=== PATIENT | female | born 1975 | race Caucasian/White ===

== ENCOUNTER → 2020-08-12 | Outpatient (CLI) | payer BC ==
[~2020-08-12] MED LIST: ESCITALOPRAM OX10 MG PO; HYDROCHLOROTHIA25 MG PO; LEVOCETIRIZINE D5 MG PO; LISINOPRIL20 MG PO; NORCO 7.5-3251 EACH PO; ORACEA40 MG PO; OSENI 25-15 MG1 EACH PO; OSENI PO; PRAVASTATIN SOD40 MG PO; SAXENDA SQ; VICTOZA 1818 MG/3 ML SC; VITAMIN D5000 UNIT PO; [UNRECOGNIZED DRUG - OTHER] PO
[2020-08-12 09:13] LABS: HEMOGLOBIN 14.5 gm/dl (12.3-15.3); RED BLOOD COUNT 4.84 M/UL (4.00-5.10); WHITE BLOOD COUNT 7.1 K/UL (4.5-11.0)
[2020-08-12 09:32] LABS: BUN/CREATININE RATIO 18 (0-10)
== END ==
LOC: LAB 08:33
PROVIDERS: Nurse Practitioner Family
DX: Z00.00 Encounter for general adult medical examination without abnormal findings (principal); F90.2 Attention-deficit hyperactivity disorder, combined type; M25.50 Pain in unspecified joint; J30.9 Allergic rhinitis, unspecified; K59.09 Other constipation; E78.5 Hyperlipidemia, unspecified; R53.83 Other fatigue; E53.8 Deficiency of other specified B group vitamins; E55.9 Vitamin D deficiency, unspecified; Z86.79 Personal history of other diseases of the circulatory system
CPT/HCPCS: 36415; 80053; 80061; 82607; 84439; 84443; 85025

== ENCOUNTER → 2020-11-11 | Outpatient (CLI) | payer BC ==
[2020-11-11 10:28] LABS: HEMOGLOBIN 12.6 gm/dl (12.3-15.3); RED BLOOD COUNT 4.48 M/UL (4.00-5.10); WHITE BLOOD COUNT 6.3 K/UL (4.5-11.0)
[2020-11-11 22:39] LABS: BUN/CREATININE RATIO 18 (0-10)
[2020-11-12 04:08] LABS: CREATININE, URINE 84.8 mg/dL (Not Estab.)
[2020-11-12 07:08] LABS: FSH, SERUM 7.6 mIU/mL (.); PROLACTIN 7.1 ng/mL (4.8-23.3)
[2020-11-12 08:10] LABS: VITAMIN D, 25-HYDROXY 19.4 ng/mL (30.0-100.0)
[2020-11-17 10:14] LABS: TESTOSTERONE, SERUM 29 ng/dL (4-50)
== END ==
LOC: LAB 09:50
PROVIDERS: Nurse Practitioner Family
DX: Z00.00 Encounter for general adult medical examination without abnormal findings (principal); R23.2 Flushing; M25.50 Pain in unspecified joint; R73.9 Hyperglycemia, unspecified; R51.9 Headache, unspecified; E78.5 Hyperlipidemia, unspecified; E53.8 Deficiency of other specified B group vitamins; E55.9 Vitamin D deficiency, unspecified; R53.83 Other fatigue
CPT/HCPCS: 36415; 80053; 80061; 82043; 82570; 82607; 82670; 83001; 83002; 83036; 84146; 84402; 84403; 84436; 84439; 84443; 85025; 85652

== ENCOUNTER → 2021-03-12 | Outpatient (CLI) | payer BC | LOC: US 13:30 | DX: R13.10 Dysphagia, unspecified (principal); E04.2 Nontoxic multinodular goiter; R22.1 Localized swelling, mass and lump, neck | CPT/HCPCS: 76536 ==

== ENCOUNTER → 2021-04-12 | Outpatient (CLI) | payer BC | LOC: CT 09:00 | DX: R13.10 Dysphagia, unspecified (principal); R59.0 Localized enlarged lymph nodes | CPT/HCPCS: 70492; Q9967 ==

== ENCOUNTER → 2021-07-07 | Outpatient (CLI) | payer BC ==
[2021-07-07 09:52] LABS: HEMOGLOBIN 12.4 gm/dl (12.3-15.3); RED BLOOD COUNT 4.76 M/UL (4.00-5.10); WHITE BLOOD COUNT 5.8 K/UL (4.5-11.0)
[2021-07-07 10:25] LABS: BUN/CREATININE RATIO 12 (0-10)
[2021-07-08 08:10] LABS: ANTISTREPTOLYSIN O AB 91.9 IU/mL (0.0-200.0); RHEUMATOID ARTHRITIS FACTOR <10.0 IU/mL (<14.0)
[2021-07-09 08:10] LABS: VITAMIN D, 25-HYDROXY 25.2 ng/mL (30.0-100.0)
== END ==
LOC: LAB 09:23
PROVIDERS: Nurse Practitioner Family
DX: Z00.00 Encounter for general adult medical examination without abnormal findings (principal); M25.50 Pain in unspecified joint; J30.9 Allergic rhinitis, unspecified; K59.09 Other constipation; E78.5 Hyperlipidemia, unspecified; R53.83 Other fatigue; E53.8 Deficiency of other specified B group vitamins; E55.9 Vitamin D deficiency, unspecified; R73.9 Hyperglycemia, unspecified; N92.0 Excessive and frequent menstruation with regular cycle
CPT/HCPCS: 36415; 80053; 80061; 82607; 83036; 84439; 84443; 84550; 85025; 85652; 86038; 86060; 86141; 86431